=== PATIENT | male | born 1970 | race Caucasian/White ===

== ENCOUNTER 2017-03-29 11:18 | Emergency (ER) | payer SELFPAY ==
[~2017-03-29] VITALS: Ht 162.6 cm; Wt 66.0 kg
[2017-03-29 11:27] VITALS: Ht 162.6 cm; Wt 66.0 kg
--- NOTE | 2017-03-29 12:05 | QN ---
Documentation Comment Patient is here for vomiting. The patient was seen in the waiting room. Medical screening exam was initiated. The patient will be seen by another provider for further workup and treatment. MABLE NG MD Mar 29, 2017 12:05
== END 2017-03-29 13:46 | disposition left against medical advice (07) ==
LOC: E/R 11:18
DX: Z53.21 Procedure and treatment not carried out due to patient leaving prior to being seen by health care provider (principal)